=== PATIENT | male | born 1955 | race Caucasian/White ===

== ENCOUNTER 2018-01-19 16:53 | Inpatient (IN) | payer OTHER ==
[2018-01-19] MEDS: CEFEPIME 2GM/50 ML (PMX) 50 ML IVPB (17:44)
[2018-01-19 17:56] LABS: ABNORMAL IP MESSAGE 1; HEMATOCRIT 24.7 % (42.0-52.0); HEMOGLOBIN 7.8 g/dl (14.0-18.0); MEAN CORPUSCULAR HEMOGLOBIN 27.6 pg (29.0-33.0); MEAN CORPUSCULAR HGB CONC 31.6 g/dl (32.0-37.0); MEAN CORPUSCULAR VOLUME 87.3 fl (82.0-101.0); MEAN PLATELET VOLUME 10.3 fl (7.4-10.4); PLATELET COUNT 198 10^3/UL (140-415); POSITIVE DIFF @See below; RED BLOOD COUNT 2.83 10^6/ul (4.70-6.10); RED CELL DISTRIBUTION WIDTH 14.7 % (11.5-14.5)
[2018-01-19 17:56] LABS: WHITE BLOOD COUNT 14.8 10^3/ul (4.8-10.8)
[2018-01-19 18:13] LABS: ADD MAN DIFF? YES
[2018-01-19 18:13] LABS: LACTIC ACID 2.6 mmol/L (0.5-2.0)
[2018-01-19 18:15] LABS: INR 1.03; PROTIME 13.6 Sec (11.9-14.9); PT RATIO 1.1
[2018-01-19 18:16] LABS: PARTIAL THROMBOPLASTIN TIME 32.4 Sec (25.0-35.0)
[2018-01-19 18:17] LABS: ALANINE AMINOTRANSFERASE 12 IU/L (13-69); ALBUMIN 3.2 g/dl (3.3-4.9); ALKALINE PHOSPHATASE 100 IU/L (42-121); ANION GAP 15 (8-16); ASPARTATE AMINO TRANSFERASE 45 IU/L (15-46); BILIRUBIN,INDIRECT 0.2 mg/dl (0-1.1); BILIRUBIN,TOTAL 0.2 mg/dl (0.2-1.3); BLOOD UREA NITROGEN 58 mg/dl (7-20); CALCIUM 8.6 mg/dl (8.4-10.2); CARBON DIOXIDE 21 mmol/L (21-31); CHLORIDE 106 mmol/L (97-110); CREATININE 5.64 mg/dl (0.61-1.24); GLUCOSE 235 mg/dl (70-220); POTASSIUM 3.8 mmol/L (3.5-5.1); SODIUM 138 mmol/L (135-144); TOTAL PROTEIN 6.4 g/dl (6.1-8.1)
[2018-01-19] MEDS: ACETAMINOPHEN 325 MG TAB PO (18:23)
[2018-01-19 18:24] LABS: TROPONIN-I 0.019 ng/ml (0.000-0.120)
[2018-01-19] MEDS: SOD CHLORIDE 0.9% 1,000 ML IV ×2 (18:24)
[2018-01-19] MEDS: SOD CHLORIDE 0.9% 500 ML IV (18:25)
[2018-01-19 18:26] LABS: ADD UMIC YES; UR ASCORBIC ACID NEGATIVE (NEGATIVE); UR BACTERIA FEW /HPF (NONE SEEN); UR BILIRUBIN (Dip) NEGATIVE (NEGATIVE); UR BLOOD (Dip) 2+ mg/dL (NEGATIVE); UR BUDDING YEAST FEW /HPF (NONE SEEN); UR CLARITY SLIGHTLY CLOUDY (CLEAR); UR COLOR YELLOW (YELLOW); UR GLUCOSE (Dip) 2+ mg/dL (NEGATIVE); UR KETONES (Dip) NEGATIVE (NEGATIVE); UR LEUKOCYTE ESTERASE (Dip) 3+ Leu/ul (NEGATIVE); UR NITRITE (Dip) NEGATIVE (NEGATIVE); UR RBC 77 /HPF (0-5); UR SPECIFIC GRAVITY (Dip) 1.013 (1.003-1.030); UR TOTAL PROTEIN (Dip) 3+ mg/dl (NEGATIVE); UR UROBILINOGEN (Dip) NEGATIVE (NEGATIVE); UR WBC 83 /HPF (0-5)
[2018-01-19 18:42] LABS: ANISOCYTOSIS 2+ (0-0); BAND NEUTROPHILS #M 0.4 10^3/ul (0.0-0.6); BAND NEUTROPHILS % (M) 3 % (0-4); EOSINOPHILS % (M) 1 % (0-7); GIANT THROMBO% (M) 1 % (0-0); LYMPHOCYTES #M 0.8 10^3/ul (0.8-2.9); LYMPHOCYTES % (M) 6 % (15-51); MICROCYTOSIS 2+ (0-0); MONOCYTE #M 1.9 10^3/ul (0.3-0.9); MONOCYTES % (M) 13 % (0-11); PLATELET MORPHOLOGY COMMENT @See below; POIKILOCYTOSIS 1+ (0-0); REACTIVE LYMPHOCYTES #M 0.2 10^3/ul (0.0-0.0); REACTIVE LYMPHOCYTES% (M) 2 % (0-0); SEG NEUT #M 11.2 10^3/ul (1.6-7.5); SEGMENTED NEUTROPHILS (M) % 75 % (39-77)
[2018-01-19 20:17] LABS: LACTIC ACID 0.9 mmol/L (0.5-2.0)
[2018-01-19] MEDS ORDERED: DOCUSATE SODIUM 100 MG CAP PO (21:30)
[2018-01-19] MEDS ORDERED: BISACODYL (EC) 5 MG TAB PO (21:30)
[2018-01-19] MEDS ORDERED: morphine 2 MG INJ IV (21:30)
[2018-01-19] MEDS ORDERED: ACETAMINOPHEN 325 MG TAB PO (21:30)
[2018-01-19] MEDS ORDERED: NACL 0.9% 3 ML SYG IV (21:30)
[2018-01-19 22:50] LABS: LACTIC ACID 0.7 mmol/L (0.5-2.0)
[2018-01-19] MEDS: CLONIDINE 0.3 MG/24 HR PATCH TRANSDERM (23:28)
[2018-01-20] MEDS: FLUCONAZOLE 200 MG TAB PO (04:10)
[2018-01-20] MEDS: MEROPENEM 500MG/50 ML (PMX) 50 ML IVPB (04:21)
[2018-01-20 07:59] LABS: WHITE BLOOD COUNT 18.1 10^3/ul (4.8-10.8)
[2018-01-20 07:59] LABS: ABNORMAL IP MESSAGE 1; HEMATOCRIT 22.2 % (42.0-52.0); MEAN CORPUSCULAR HGB CONC 31.5 g/dl (32.0-37.0); MEAN CORPUSCULAR VOLUME 88.8 fl (82.0-101.0); MEAN PLATELET VOLUME 10.3 fl (7.4-10.4); PLATELET COUNT 192 10^3/UL (140-415); POSITIVE DIFF @See below; RED CELL DISTRIBUTION WIDTH 14.8 % (11.5-14.5)
[2018-01-20 08:01] LABS: ADD MAN DIFF? YES
[2018-01-20 08:10] LABS: HEMOGLOBIN A1C 6.9 % (0-5.9)
[2018-01-20 08:14] LABS: ALANINE AMINOTRANSFERASE 17 IU/L (13-69); ALBUMIN 2.6 g/dl (3.3-4.9); ALBUMIN/GLOBULIN RATIO 0.96; ALKALINE PHOSPHATASE 91 IU/L (42-121); ANION GAP 11 (8-16); ASPARTATE AMINO TRANSFERASE 19 IU/L (15-46); BILIRUBIN,INDIRECT 0.1 mg/dl (0-1.1); BILIRUBIN,TOTAL 0.1 mg/dl (0.2-1.3); BLOOD UREA NITROGEN 58 mg/dl (7-20); CALCIUM 8.2 mg/dl (8.4-10.2); CARBON DIOXIDE 22 mmol/L (21-31); CHLORIDE 112 mmol/L (97-110); CREATININE 5.29 mg/dl (0.61-1.24); GLUCOSE 114 mg/dl (70-220); POTASSIUM 3.7 mmol/L (3.5-5.1); SODIUM 141 mmol/L (135-144); TOTAL PROTEIN 5.3 g/dl (6.1-8.1)
[2018-01-20] MEDS: LEVOTHYROXINE 75 MCG TAB PO (08:35)
[2018-01-20] MEDS: LOSARTAN 25 MG TAB PO (08:35)
[2018-01-20] MEDS: FERROUS SULFATE (EC) 325 MG TAB PO ×2 (08:35→20:51)
[2018-01-20] MEDS: ASPIRIN (EC) 325 MG TAB PO (08:35)
[2018-01-20 08:50] LABS: IRON 21 ug/dl (35-150)
[2018-01-20 08:59] LABS: ANISOCYTOSIS 1+ (0-0); BAND NEUTROPHILS #M 2.8 10^3/ul (0.0-0.6); BAND NEUTROPHILS % (M) 16 % (0-4); EOSINOPHILS % (M) 1 % (0-7); LYMPHOCYTES #M 1.4 10^3/ul (0.8-2.9); LYMPHOCYTES % (M) 8 % (15-51); MICROCYTOSIS 1+ (0-0); MONOCYTE #M 1.6 10^3/ul (0.3-0.9); MONOCYTES % (M) 9 % (0-11); MYELOCYTES #M 0.1 10^3/ul (0.0-0.0); MYELOCYTES % (M) 1 % (0-0); PLATELET ESTIMATE NORMAL; POIKILOCYTOSIS 1+ (0-0); POLYCHROMASIA 1+ (0-0); REACTIVE LYMPHOCYTES #M 0.1 10^3/ul (0.0-0.0); REACTIVE LYMPHOCYTES% (M) 1 % (0-0); SEG NEUT #M 12.1 10^3/ul (1.6-7.5); SEGMENTED NEUTROPHILS (M) % 64 % (39-77); SMUDGE%M 6 % (0-0)
[2018-01-20 09:00] LABS: % IRON SATURATION 10 % SAT (22-52); TOTAL IRON BINDING CAPACITY 210 ug/dl (241-421)
[2018-01-20] MEDS ORDERED: morphine LIQ (10 MG/5 ML) CUP PO (15:00)
[2018-01-20] MEDS: EPOETIN 10000 UNITS/1 ML INJ (ESRD) SC (17:08)
[2018-01-20] MEDS: EZETIMIBE 10 MG TAB PO (20:51)
[2018-01-20] MEDS: ATORVASTATIN 40 MG TAB PO (20:51)
[2018-01-21] MEDS: MEROPENEM 500MG/50 ML (PMX) 50 ML IVPB ×2 (03:52→04:00)
[2018-01-21 06:06] LABS: ADD MAN DIFF? NO
[2018-01-21 06:11] LABS: WHITE BLOOD COUNT 17.9 10^3/ul (4.8-10.8)
[2018-01-21 06:11] LABS: ABNORMAL IP MESSAGE 1; BASOPHIL # 0.1 10^3/ul (0.0-0.1); BASOPHILS % 0.5 % (0.0-2.0); EOSINOPHILS # 0.6 10^3/ul (0.0-0.5); EOSINOPHILS % 3.6 % (0.0-7.0); HEMATOCRIT 25.7 % (42.0-52.0); HEMOGLOBIN 8.4 g/dl (14.0-18.0); LYMPHOCYTES % 11.4 % (15.0-51.0); MEAN CORPUSCULAR HEMOGLOBIN 28.8 pg (29.0-33.0); MEAN CORPUSCULAR HGB CONC 32.7 g/dl (32.0-37.0); MEAN PLATELET VOLUME 9.8 fl (7.4-10.4); MONOCYTE # 1.7 10^3/ul (0.3-0.9); MONOCYTES % 9.3 % (0.0-11.0); NEUTROPHIL # 12.9 10^3/ul (1.6-7.5); NEUTROPHILS % 71.9 % (39.0-77.0); PLATELET COUNT 211 10^3/UL (140-415); POSITIVE DIFF @See below; RED BLOOD COUNT 2.92 10^6/ul (4.70-6.10); RED CELL DISTRIBUTION WIDTH 14.5 % (11.5-14.5)
[2018-01-21] MEDS: LEVOTHYROXINE 75 MCG TAB PO (06:26)
[2018-01-21 06:27] LABS: ANION GAP 11 (8-16); BLOOD UREA NITROGEN 57 mg/dl (7-20); CALCIUM 8.4 mg/dl (8.4-10.2); CARBON DIOXIDE 22 mmol/L (21-31); CHLORIDE 111 mmol/L (97-110); GLUCOSE 176 mg/dl (70-220); MAGNESIUM 2.2 mg/dl (1.7-2.5); PHOSPHORUS 4.2 mg/dl (2.5-4.9); POTASSIUM 3.8 mmol/L (3.5-5.1); SODIUM 140 mmol/L (135-144)
[2018-01-21] MEDS: FERROUS SULFATE (EC) 325 MG TAB PO ×3 (08:41→20:24)
[2018-01-21] MEDS: ASPIRIN (EC) 325 MG TAB PO (08:41)
[2018-01-21] MEDS: LOSARTAN 50 MG TAB PO (08:42)
[2018-01-21 10:52] LABS: IMMEDIATE SPIN CROSSMATCH 1 1
[2018-01-21] MEDS ORDERED: VANCOMYCIN IV PER PHARMACY XX (14:30)
[2018-01-21] MEDS: VANCOMYCIN 1.75 GM in SOD CHLORIDE 0.9% 500 ML IVPB ×2 (16:37→18:44)
[2018-01-21] MEDS ORDERED: GLUCOSE GEL 15 GRAM TUBE PO ×2 (20:00)
[2018-01-21] MEDS ORDERED: GLUCOSE GEL 15 GRAM TUBE BUCCAL (20:00)
[2018-01-21] MEDS ORDERED: GLUCAGON 1 MG INJ IM (20:00)
[2018-01-21] MEDS ORDERED: DEXTROSE 50% 50 ML SYRINGE IV ×2 (20:00)
[2018-01-21] MEDS: ATORVASTATIN 40 MG TAB PO (20:24)
[2018-01-21] MEDS: EZETIMIBE 10 MG TAB PO (20:26)
[2018-01-21] MEDS: INSULIN ASPART [NOVOLOG] 3 ML PEN SC (20:51)
[2018-01-21] MEDS ORDERED: INSULIN ASPART [NOVOLOG] 3 ML PEN SC (21:00)
[2018-01-22] MEDS: ACCU-CHEK XX (01:52)
[2018-01-22] MEDS: LEVOTHYROXINE 75 MCG TAB PO (06:22)
[2018-01-22 06:42] LABS: ADD MAN DIFF? NO
[2018-01-22 06:54] LABS: ABNORMAL IP MESSAGE 1; BASOPHIL # 0.1 10^3/ul (0.0-0.1); BASOPHILS % 0.6 % (0.0-2.0); EOSINOPHILS # 0.7 10^3/ul (0.0-0.5); EOSINOPHILS % 4.3 % (0.0-7.0); HEMATOCRIT 26.1 % (42.0-52.0); HEMOGLOBIN 8.4 g/dl (14.0-18.0); LYMPHOCYTES # 2.3 10^3/ul (0.8-2.9); LYMPHOCYTES % 14.7 % (15.0-51.0); MEAN CORPUSCULAR HGB CONC 32.2 g/dl (32.0-37.0); MEAN PLATELET VOLUME 9.8 fl (7.4-10.4); MONOCYTE # 1.4 10^3/ul (0.3-0.9); MONOCYTES % 9.4 % (0.0-11.0); NEUTROPHIL # 9.7 10^3/ul (1.6-7.5); NEUTROPHILS % 63.3 % (39.0-77.0); PLATELET COUNT 241 10^3/UL (140-415); POSITIVE DIFF @See below; RED CELL DISTRIBUTION WIDTH 14.9 % (11.5-14.5)
[2018-01-22 06:54] LABS: WHITE BLOOD COUNT 15.3 10^3/ul (4.8-10.8)
[2018-01-22 07:13] LABS: ANION GAP 13 (8-16); BLOOD UREA NITROGEN 51 mg/dl (7-20); CALCIUM 8.5 mg/dl (8.4-10.2); CARBON DIOXIDE 22 mmol/L (21-31); CHLORIDE 112 mmol/L (97-110); CREATININE 5.14 mg/dl (0.61-1.24); GLUCOSE 179 mg/dl (70-220); MAGNESIUM 2.3 mg/dl (1.7-2.5); PHOSPHORUS 4.2 mg/dl (2.5-4.9); POTASSIUM 4.1 mmol/L (3.5-5.1); SODIUM 143 mmol/L (135-144)
[2018-01-22] MEDS: FERROUS SULFATE (EC) 325 MG TAB PO ×2 (08:43→14:16)
[2018-01-22] MEDS: ASPIRIN (EC) 325 MG TAB PO (08:43)
[2018-01-22] MEDS: LOSARTAN 50 MG TAB PO (08:44)
[2018-01-22] MEDS: INSULIN ASPART [NOVOLOG] 3 ML PEN SC ×2 (08:55→12:52)
== END 2018-01-22 14:30 | disposition home or self-care (01) | DRG 698 ==
LOC: E/R 16:53 → TEL 19:50
PROVIDERS: Pediatrics
DX: T83.518A Infection and inflammatory reaction due to other urinary catheter, initial encounter (principal); A41.9 Sepsis, unspecified organism; N39.0 Urinary tract infection, site not specified; I50.22 Chronic systolic (congestive) heart failure; I13.2 Hypertensive heart and chronic kidney disease with heart failure and with stage 5 chronic kidney disease, or end stage renal disease; N18.5 Chronic kidney disease, stage 5; E11.22 Type 2 diabetes mellitus with diabetic chronic kidney disease; I48.0 Paroxysmal atrial fibrillation; E03.9 Hypothyroidism, unspecified; I25.10 Atherosclerotic heart disease of native coronary artery without angina pectoris; Y84.6 Urinary catheterization as the cause of abnormal reaction of the patient, or of later complication, without mention of misadventure at the time of the procedure; Y92.019 Unspecified place in single-family (private) house as the place of occurrence of the external cause; Z79.01 Long term (current) use of anticoagulants; Z79.82 Long term (current) use of aspirin; Z79.84 Long term (current) use of oral hypoglycemic drugs; Z87.891 Personal history of nicotine dependence; Z95.5 Presence of coronary angioplasty implant and graft; Z79.4 Long term (current) use of insulin
CPT/HCPCS: 36415; 36430; 71045; 76775; 80048; 80053; 81001; 82728; 82962; 83036; 83540; 83605; 83735; 84100; 84484; 85025; 85610; 85730; 86850; 86900; 86901; 86920; 87040; 87086; 93005; 96361; 96365; 99291-25

== ENCOUNTER 2018-02-04 02:14 | Inpatient (IN) | payer OTHER ==
[2018-02-04] MEDS ORDERED: NITROGLYCERIN (SL) 0.4 MG TAB (02:27)
[2018-02-04] MEDS: NITROGLYCERIN 50 MG/D5W (PMX) 250 ML IV (02:37)
[2018-02-04] MEDS: LORAZEPAM 2 MG INJ IV (02:37)
[2018-02-04] MEDS: ASPIRIN 325 MG TAB PO (02:38)
[2018-02-04] MEDS: NITROGLYCERIN (SL) 0.4 MG TAB SL (02:38)
[2018-02-04] MEDS: ONDANSETRON 4 MG INJ IV (02:38)
[2018-02-04] MEDS: FUROSEMIDE 40 MG INJ IV ×2 (02:38→03:54)
[2018-02-04 02:53] LABS: ADD MAN DIFF? NO
[2018-02-04 02:54] LABS: BASOPHIL # 0.2 10^3/ul (0.0-0.1); BASOPHILS % 1.1 % (0.0-2.0); EOSINOPHILS # 0.5 10^3/ul (0.0-0.5); EOSINOPHILS % 3.4 % (0.0-7.0); HEMATOCRIT 33.4 % (42.0-52.0); HEMOGLOBIN 10.4 g/dl (14.0-18.0); LYMPHOCYTES # 3.2 10^3/ul (0.8-2.9); LYMPHOCYTES % 23.1 % (15.0-51.0); MEAN CORPUSCULAR HEMOGLOBIN 28.2 pg (29.0-33.0); MEAN CORPUSCULAR HGB CONC 31.1 g/dl (32.0-37.0); MEAN CORPUSCULAR VOLUME 90.5 fl (82.0-101.0); MEAN PLATELET VOLUME 10.4 fl (7.4-10.4); MONOCYTE # 0.8 10^3/ul (0.3-0.9); MONOCYTES % 5.7 % (0.0-11.0); NEUTROPHIL # 9.3 10^3/ul (1.6-7.5); NEUTROPHILS % 66.3 % (39.0-77.0); PLATELET COUNT 307 10^3/UL (140-415); RED BLOOD COUNT 3.69 10^6/ul (4.70-6.10); RED CELL DISTRIBUTION WIDTH 15.7 % (11.5-14.5)
[2018-02-04] MEDS: METOLAZONE 5 MG TAB PO (03:18)
[2018-02-04 03:27] LABS: ANION GAP 21 (8-16); BLOOD UREA NITROGEN 63 mg/dl (7-20); CALCIUM 9.8 mg/dl (8.4-10.2); CARBON DIOXIDE 23 mmol/L (21-31); CHLORIDE 107 mmol/L (97-110); CREATINE KINASE 37 IU/L (23-200); CREATININE 5.15 mg/dl (0.61-1.24); GLUCOSE 224 mg/dl (70-220); POTASSIUM 4.6 mmol/L (3.5-5.1); SODIUM 146 mmol/L (135-144)
[2018-02-04 03:39] LABS: CK INDEX 3.2; TROPONIN-I 0.019 ng/ml (0.000-0.120)
[2018-02-04 03:47] LABS: CK-MB 1.19 ng/ml (0.0-2.4)
[2018-02-04 03:52] LABS: B-TYPE NATRIURETIC PEPTIDE 37600 PG/ML (0-125)
[2018-02-04 04:56] LABS: AADO2 Arterial 198.7 mmHg (7.0-24.0); Allen Test ACCEPTAB; Arterial Base Excess -3.9 mmol/L (-3.0-3); Arterial Blood Gas Oxygen Sat 98.2 mmHG (95.0-98.0); Arterial COHb 0.1 % (0.0-3.0); Arterial Fraction of Oxyhgb 97.9 % (93.0-99.0); Arterial HCO3 20.2 mmol/L (22.0-26.0); Arterial MetHb 0.2 % (0.0-1.5); Arterial Total Hemglobin 9.1 g/dl (12.0-18.0); Arterial pCO2 32.7 mmhg (35-45); Blood Gas IEPAP 15/5; MODE MASK - BIPAP; Site Right Radial
[2018-02-04] MEDS ORDERED: ONDANSETRON 4 MG INJ IV (05:00)
[2018-02-04] MEDS ORDERED: ACETAMINOPHEN 325 MG TAB PO (05:00)
[2018-02-04] MEDS ORDERED: ALBUTEROL/IPRATROPIUM (NEB) 3 ML AMP NEB (05:00)
[2018-02-04] MEDS: PANTOPRAZOLE (EC) 40 MG TAB PO (06:27)
[2018-02-04] MEDS: LEVOTHYROXINE 75 MCG TAB PO (06:27)
[2018-02-04] MEDS: LOSARTAN 25 MG TAB PO ×2 (06:28→10:06)
[2018-02-04] MEDS ORDERED: CLONIDINE 0.3 MG/24 HR PATCH TRANSDERM (07:00)
[2018-02-04 08:05] LABS: HEMOGLOBIN A1C 6.8 % (0-5.9)
[2018-02-04 09:59] LABS: CREATINE KINASE 24 IU/L (23-200)
[2018-02-04] MEDS: BUMETANIDE 6 MG in DEXTROSE 5% 36 ML IV ×2 (10:06→15:01)
[2018-02-04] MEDS: ASPIRIN (EC) 325 MG TAB PO (10:06)
[2018-02-04 10:07] LABS: CK INDEX 2.5; TROPONIN-I 0.027 ng/ml (0.000-0.120)
[2018-02-04] MEDS: ENOXAPARIN 40 MG/0.4 ML SYG SC (10:07)
[2018-02-04 10:09] LABS: CK-MB 0.59 ng/ml (0.0-2.4)
[2018-02-04] MEDS ORDERED: GLUCOSE GEL 15 GRAM TUBE PO ×2 (10:30)
[2018-02-04] MEDS ORDERED: GLUCOSE GEL 15 GRAM TUBE BUCCAL (10:30)
[2018-02-04] MEDS ORDERED: DEXTROSE 50% 50 ML SYRINGE IV ×2 (10:30)
[2018-02-04] MEDS ORDERED: GLUCAGON 1 MG INJ IM (10:30)
[2018-02-04] MEDS: INSULIN ASPART [NOVOLOG] 3 ML PEN SC ×3 (13:29→20:57)
[2018-02-04 14:45] LABS: HEPATITIS B SURFACE ANTIGEN NEGATIVE (NEGATIVE)
[2018-02-04] MEDS: ATORVASTATIN 40 MG TAB PO (20:47)
[2018-02-04] MEDS: EZETIMIBE 10 MG TAB PO (20:48)
[2018-02-04] MEDS: HEPARIN 5,000 UNIT/0.5 ML VIAL SC (20:50)
[2018-02-05] MEDS: ACCU-CHEK XX (02:30)
[2018-02-05 04:56] LABS: ADD MAN DIFF? NO
[2018-02-05 05:03] LABS: BASOPHIL # 0.1 10^3/ul (0.0-0.1); BASOPHILS % 0.9 % (0.0-2.0); EOSINOPHILS # 0.2 10^3/ul (0.0-0.5); EOSINOPHILS % 3.3 % (0.0-7.0); HEMATOCRIT 23.5 % (42.0-52.0); HEMOGLOBIN 7.5 g/dl (14.0-18.0); LYMPHOCYTES # 1.8 10^3/ul (0.8-2.9); LYMPHOCYTES % 28.3 % (15.0-51.0); MEAN CORPUSCULAR HEMOGLOBIN 28.2 pg (29.0-33.0); MEAN CORPUSCULAR HGB CONC 31.9 g/dl (32.0-37.0); MEAN CORPUSCULAR VOLUME 88.3 fl (82.0-101.0); MEAN PLATELET VOLUME 10.2 fl (7.4-10.4); MONOCYTE # 0.8 10^3/ul (0.3-0.9); MONOCYTES % 12.2 % (0.0-11.0); NEUTROPHIL # 3.5 10^3/ul (1.6-7.5); PLATELET COUNT 174 10^3/UL (140-415); RED BLOOD COUNT 2.66 10^6/ul (4.70-6.10); RED CELL DISTRIBUTION WIDTH 15.4 % (11.5-14.5)
[2018-02-05 05:03] LABS: WHITE BLOOD COUNT 6.4 10^3/ul (4.8-10.8)
[2018-02-05 05:14] LABS: ANION GAP 14 (8-16); BLOOD UREA NITROGEN 46 mg/dl (7-20); CARBON DIOXIDE 26 mmol/L (21-31); CHLORIDE 107 mmol/L (97-110); CREATININE 4.13 mg/dl (0.61-1.24); GLUCOSE 130 mg/dl (70-220); POTASSIUM 3.7 mmol/L (3.5-5.1); SODIUM 143 mmol/L (135-144)
[2018-02-05 05:15] LABS: CALCIUM 8.7 mg/dl (8.4-10.2); MAGNESIUM 2.1 mg/dl (1.7-2.5)
[2018-02-05] MEDS: LEVOTHYROXINE 75 MCG TAB PO (06:10)
[2018-02-05] MEDS: PANTOPRAZOLE (EC) 40 MG TAB PO (06:10)
[2018-02-05] MEDS: INSULIN ASPART [NOVOLOG] 3 ML PEN SC ×4 (07:35→20:41)
[2018-02-05 07:57] LABS: IRON 26 ug/dl (35-150)
[2018-02-05 08:07] LABS: % IRON SATURATION 11 % SAT (22-52); TOTAL IRON BINDING CAPACITY 241 ug/dl (241-421)
[2018-02-05] MEDS: ASPIRIN (EC) 325 MG TAB PO (09:23)
[2018-02-05] MEDS: LOSARTAN 25 MG TAB PO (09:23)
[2018-02-05] MEDS: HEPARIN 5,000 UNIT/0.5 ML VIAL SC ×2 (09:31→20:42)
[2018-02-05] MEDS: FUROSEMIDE 40 MG TAB PO ×2 (10:59→17:37)
[2018-02-05] MEDS: HEPARIN 1000 UNITS/ML 10 ML INJ CATHETER (13:01)
[2018-02-05] MEDS: EZETIMIBE 10 MG TAB PO (20:39)
[2018-02-05] MEDS: ATORVASTATIN 40 MG TAB PO (20:39)
[2018-02-05] MEDS: FERROUS SULFATE (EC) 325 MG TAB PO (20:40)
[2018-02-05] MEDS ORDERED: NON-FORMULARY/PATIENT OWN MED (Carvedilol* 25 MG) PO (21:00)
[2018-02-06] MEDS: ACCU-CHEK XX (02:00)
[2018-02-06] MEDS: FUROSEMIDE 40 MG TAB PO ×2 (06:10→17:35)
[2018-02-06 06:12] LABS: ADD MAN DIFF? NO; HAAIG REFLEX REFLEX FILED
[2018-02-06 06:18] LABS: BASOPHIL # 0.1 10^3/ul (0.0-0.1); BASOPHILS % 0.9 % (0.0-2.0); EOSINOPHILS # 0.3 10^3/ul (0.0-0.5); EOSINOPHILS % 3.9 % (0.0-7.0); HEMATOCRIT 28.2 % (42.0-52.0); HEMOGLOBIN 8.9 g/dl (14.0-18.0); LYMPHOCYTES # 2.2 10^3/ul (0.8-2.9); LYMPHOCYTES % 29.5 % (15.0-51.0); MEAN CORPUSCULAR HGB CONC 31.6 g/dl (32.0-37.0); MEAN CORPUSCULAR VOLUME 88.7 fl (82.0-101.0); MEAN PLATELET VOLUME 10.3 fl (7.4-10.4); MONOCYTE # 0.9 10^3/ul (0.3-0.9); MONOCYTES % 12.3 % (0.0-11.0); NEUTROPHIL # 3.9 10^3/ul (1.6-7.5); NEUTROPHILS % 53.1 % (39.0-77.0); PLATELET COUNT 194 10^3/UL (140-415); RED BLOOD COUNT 3.18 10^6/ul (4.70-6.10); RED CELL DISTRIBUTION WIDTH 14.9 % (11.5-14.5)
[2018-02-06 06:18] LABS: WHITE BLOOD COUNT 7.4 10^3/ul (4.8-10.8)
[2018-02-06 07:27] LABS: ANION GAP 15 (8-16); BLOOD UREA NITROGEN 46 mg/dl (7-20); CARBON DIOXIDE 26 mmol/L (21-31); CHLORIDE 104 mmol/L (97-110); CREATININE 4.24 mg/dl (0.61-1.24); GLUCOSE 155 mg/dl (70-220); MAGNESIUM 2.1 mg/dl (1.7-2.5); PHOSPHORUS 5.3 mg/dl (2.5-4.9); POTASSIUM 3.4 mmol/L (3.5-5.1); SODIUM 142 mmol/L (135-144)
[2018-02-06 07:38] LABS: HEPATITIS B SURFACE ANTIGEN NEGATIVE (NEGATIVE)
[2018-02-06 07:56] LABS: HEPATITIS C VIRAL ANTIBODY NEGATIVE (NEGATIVE)
[2018-02-06] MEDS: ALLOPURINOL 100 MG TAB PO (08:22)
[2018-02-06] MEDS: FERROUS SULFATE (EC) 325 MG TAB PO ×2 (08:22→21:14)
[2018-02-06] MEDS: TAMSULOSIN (SR) 0.4 MG CAP PO (08:22)
[2018-02-06] MEDS: POTASSIUM CHLORIDE (SR) 20 MEQ TAB PO (08:23)
[2018-02-06] MEDS: LOSARTAN 25 MG TAB PO (08:24)
[2018-02-06] MEDS: ASPIRIN (EC) 325 MG TAB PO (08:24)
[2018-02-06] MEDS: INSULIN ASPART [NOVOLOG] 3 ML PEN SC ×4 (08:26→21:17)
[2018-02-06] MEDS: HEPARIN 5,000 UNIT/0.5 ML VIAL SC ×2 (08:26→21:31)
[2018-02-06] MEDS: LEVOTHYROXINE 75 MCG TAB PO (08:27)
[2018-02-06] MEDS ORDERED: AMIODARONE 200 MG TAB PO (09:00)
[2018-02-06] MEDS ORDERED: EZETIMIBE 10 MG PO (09:00)
[2018-02-06 12:57] LABS: HEPATITIS B CORE ANTIBODY NEGATIVE (NEGATIVE)
[2018-02-06] MEDS: ATORVASTATIN 40 MG TAB PO (21:14)
[2018-02-06] MEDS: EZETIMIBE 10 MG TAB PO (21:14)
[2018-02-07] MEDS: ACCU-CHEK XX (01:59)
[2018-02-07] MEDS: LEVOTHYROXINE 75 MCG TAB PO (06:15)
[2018-02-07] MEDS: FUROSEMIDE 40 MG TAB PO (06:16)
[2018-02-07 06:20] LABS: ADD MAN DIFF? NO
[2018-02-07 06:34] LABS: BASOPHIL # 0.1 10^3/ul (0.0-0.1); EOSINOPHILS # 0.3 10^3/ul (0.0-0.5); HEMATOCRIT 27.9 % (42.0-52.0); LYMPHOCYTES # 2.5 10^3/ul (0.8-2.9); MEAN CORPUSCULAR HGB CONC 32.3 g/dl (32.0-37.0); MEAN CORPUSCULAR VOLUME 86.9 fl (82.0-101.0); MEAN PLATELET VOLUME 10.3 fl (7.4-10.4); MONOCYTE # 0.9 10^3/ul (0.3-0.9); MONOCYTES % 11.7 % (0.0-11.0); NEUTROPHIL # 3.5 10^3/ul (1.6-7.5); PLATELET COUNT 218 10^3/UL (140-415); RED BLOOD COUNT 3.21 10^6/ul (4.70-6.10); RED CELL DISTRIBUTION WIDTH 15.2 % (11.5-14.5)
[2018-02-07 06:34] LABS: WHITE BLOOD COUNT 7.3 10^3/ul (4.8-10.8)
[2018-02-07 07:00] LABS: ANION GAP 19 (8-16); BLOOD UREA NITROGEN 56 mg/dl (7-20); CALCIUM 9.2 mg/dl (8.4-10.2); CARBON DIOXIDE 29 mmol/L (21-31); CHLORIDE 99 mmol/L (97-110); CREATININE 5.15 mg/dl (0.61-1.24); GLUCOSE 149 mg/dl (70-220); MAGNESIUM 2.2 mg/dl (1.7-2.5); PHOSPHORUS 5.8 mg/dl (2.5-4.9); POTASSIUM 3.7 mmol/L (3.5-5.1); SODIUM 143 mmol/L (135-144)
[2018-02-07] MEDS: FERROUS SULFATE (EC) 325 MG TAB PO (08:08)
[2018-02-07] MEDS: LOSARTAN 25 MG TAB PO (08:08)
[2018-02-07] MEDS: ATORVASTATIN 80 MG TAB PO (08:08)
[2018-02-07] MEDS: ASPIRIN (EC) 325 MG TAB PO (08:08)
[2018-02-07] MEDS: TAMSULOSIN (SR) 0.4 MG CAP PO (08:09)
[2018-02-07] MEDS: ALLOPURINOL 100 MG TAB PO (08:09)
[2018-02-07] MEDS: INSULIN ASPART [NOVOLOG] 3 ML PEN SC ×2 (08:11→12:45)
[2018-02-07] MEDS: HEPARIN 5,000 UNIT/0.5 ML VIAL SC (08:12)
[2018-02-10] MEDS ORDERED: CLONIDINE 0.3 MG/24 HR PATCH TRANSDERM (07:00)
== END 2018-02-07 16:55 | disposition left against medical advice (07) | DRG 291 ==
LOC: MS2 02-05 15:45 → E/R 02:14 → ICU 02:52
PROC: 5A1D70Z Performance of Urinary Filtration, Intermittent, Less than 6 Hours Per Day (ICD-10-PCS; 2018-02-04)
PROC: 5A1D70Z Performance of Urinary Filtration, Intermittent, Less than 6 Hours Per Day (ICD-10-PCS; principal; 2018-02-05)
DX: I50.23 Acute on chronic systolic (congestive) heart failure (principal); J96.01 Acute respiratory failure with hypoxia; N18.5 Chronic kidney disease, stage 5; E87.0 Hyperosmolality and hypernatremia; I13.2 Hypertensive heart and chronic kidney disease with heart failure and with stage 5 chronic kidney disease, or end stage renal disease; E11.22 Type 2 diabetes mellitus with diabetic chronic kidney disease; I16.0 Hypertensive urgency; I48.0 Paroxysmal atrial fibrillation; I11.0 Hypertensive heart disease with heart failure; I25.10 Atherosclerotic heart disease of native coronary artery without angina pectoris; E78.5 Hyperlipidemia, unspecified; Z79.4 Long term (current) use of insulin; Z99.2 Dependence on renal dialysis; Z87.891 Personal history of nicotine dependence
CPT/HCPCS: 36415; 36600; 71045; 80048; 82550; 82553; 82728; 82803; 82962; 83036; 83540; 83735; 83880; 84100; 84484; 85025; 86704; 86709; 86803; 87081; 87340; 90935; 93005; 94660; 96374; 96375; 96376; 99291-25

== ENCOUNTER 2018-04-04 01:26 | Inpatient (IN) | payer OTHER ==
[2018-04-04 01:38] LABS: ADD MAN DIFF? NO
[2018-04-04 01:40] LABS: BASOPHIL # 0.1 10^3/ul (0.0-0.1); BASOPHILS % 0.5 % (0.0-2.0); EOSINOPHILS # 0.4 10^3/ul (0.0-0.5); EOSINOPHILS % 2.9 % (0.0-7.0); HEMATOCRIT 31.1 % (42.0-52.0); HEMOGLOBIN 10.2 g/dl (14.0-18.0); LYMPHOCYTES # 3.3 10^3/ul (0.8-2.9); LYMPHOCYTES % 21.7 % (15.0-51.0); MEAN CORPUSCULAR HEMOGLOBIN 28.7 pg (29.0-33.0); MEAN CORPUSCULAR HGB CONC 32.8 g/dl (32.0-37.0); MEAN CORPUSCULAR VOLUME 87.6 fl (82.0-101.0); MEAN PLATELET VOLUME 9.6 fl (7.4-10.4); MONOCYTE # 1.3 10^3/ul (0.3-0.9); MONOCYTES % 8.7 % (0.0-11.0); NEUTROPHIL # 9.9 10^3/ul (1.6-7.5); NEUTROPHILS % 65.7 % (39.0-77.0); PLATELET COUNT 224 10^3/UL (140-415); RED BLOOD COUNT 3.55 10^6/ul (4.70-6.10); RED CELL DISTRIBUTION WIDTH 16.6 % (11.5-14.5)
[2018-04-04 01:59] LABS: ALANINE AMINOTRANSFERASE 16 IU/L (13-69); ALBUMIN/GLOBULIN RATIO 1.08; ALKALINE PHOSPHATASE 77 IU/L (42-121); ANION GAP 19 (8-16); ASPARTATE AMINO TRANSFERASE 14 IU/L (15-46); BILIRUBIN,INDIRECT 0.1 mg/dl (0-1.1); BILIRUBIN,TOTAL 0.1 mg/dl (0.2-1.3); BLOOD UREA NITROGEN 55 mg/dl (7-20); CALCIUM 9.6 mg/dl (8.4-10.2); CARBON DIOXIDE 19 mmol/L (21-31); CHLORIDE 106 mmol/L (97-110); CREATININE 4.73 mg/dl (0.61-1.24); GLUCOSE 207 mg/dl (70-220); POTASSIUM 3.6 mmol/L (3.5-5.1); SODIUM 140 mmol/L (135-144); TOTAL PROTEIN 7.7 g/dl (6.1-8.1)
[2018-04-04 02:12] LABS: TROPONIN-I 0.031 ng/ml (0.000-0.120)
[2018-04-04 02:25] LABS: B-TYPE NATRIURETIC PEPTIDE 47400 PG/ML (0-125)
[2018-04-04] MEDS: hydrALAzine 20 MG INJ IV (04:27)
[2018-04-04] MEDS ORDERED: ACETAMINOPHEN 325 MG TAB PO (06:00)
[2018-04-04] MEDS ORDERED: DOCUSATE SODIUM 100 MG CAP PO (06:00)
[2018-04-04] MEDS ORDERED: CLONIDINE TRANSDERM (06:00)
[2018-04-04] MEDS ORDERED: NACL 0.9% 3 ML SYG IV (06:00)
[2018-04-04] MEDS ORDERED: ONDANSETRON 4 MG INJ IV (06:00)
[2018-04-04] MEDS ORDERED: hydrALAzine 20 MG INJ IV (06:00)
[2018-04-04] MEDS ORDERED: DEXTROSE 50% 50 ML SYRINGE IV ×2 (08:00)
[2018-04-04] MEDS ORDERED: GLUCAGON 1 MG INJ IM (08:00)
[2018-04-04] MEDS: LEVOTHYROXINE 75 MCG TAB PO (08:00)
[2018-04-04] MEDS ORDERED: GLUCOSE GEL 15 GRAM TUBE BUCCAL (08:00)
[2018-04-04] MEDS ORDERED: GLUCOSE GEL 15 GRAM TUBE PO ×2 (08:00)
[2018-04-04] MEDS: ASPIRIN (EC) 325 MG TAB PO (08:48)
[2018-04-04] MEDS: ALLOPURINOL 100 MG TAB PO (08:48)
[2018-04-04] MEDS: FERROUS SULFATE (EC) 325 MG TAB PO ×2 (08:48→20:59)
[2018-04-04] MEDS: HYDROCHLOROTHIAZIDE 25 MG TAB PO (08:49)
[2018-04-04] MEDS: AMIODARONE 200 MG TAB PO (08:50)
[2018-04-04] MEDS: FUROSEMIDE 40 MG INJ IV (08:51)
[2018-04-04] MEDS: ATORVASTATIN 80 MG TAB PO (08:51)
[2018-04-04] MEDS: LOSARTAN 25 MG TAB PO (08:52)
[2018-04-04] MEDS: EZETIMIBE 10 MG TAB PO (09:00)
[2018-04-04] MEDS ORDERED: FUROSEMIDE 40 MG TAB PO (09:00)
[2018-04-04] MEDS: HEPARIN 5,000 UNIT/0.5 ML VIAL SC ×3 (09:03→22:42)
[2018-04-04 09:34] LABS: CREATINE KINASE 36 IU/L (23-200)
[2018-04-04 09:43] LABS: CK INDEX 3.5; CK-MB 1.26 ng/ml (0.0-2.4); TROPONIN-I 0.049 ng/ml (0.000-0.120)
[2018-04-04] MEDS: CLONIDINE 0.3 MG/24 HR PATCH TRANSDERM (11:06)
[2018-04-04 14:58] LABS: CREATINE KINASE 34 IU/L (23-200)
[2018-04-04 15:11] LABS: CK INDEX 3.9; CK-MB 1.34 ng/ml (0.0-2.4)
[2018-04-04] MEDS: TAMSULOSIN (SR) 0.4 MG CAP PO (20:59)
[2018-04-04] MEDS: INSULIN ASPART [NOVOLOG] 3 ML PEN SC (21:09)
[2018-04-04] MEDS: INSULIN GLARGINE [LANTus] (100 UNITS/ML) SYG SC (21:09)
[2018-04-05] MEDS: ACCU-CHEK XX (02:00)
[2018-04-05 06:15] LABS: ADD MAN DIFF? NO
[2018-04-05] MEDS: LEVOTHYROXINE 75 MCG TAB PO (06:24)
[2018-04-05 06:25] LABS: WHITE BLOOD COUNT 8.2 10^3/ul (4.8-10.8)
[2018-04-05 06:25] LABS: BASOPHIL # 0.1 10^3/ul (0.0-0.1); BASOPHILS % 0.9 % (0.0-2.0); EOSINOPHILS # 0.3 10^3/ul (0.0-0.5); EOSINOPHILS % 3.9 % (0.0-7.0); HEMATOCRIT 27.6 % (42.0-52.0); HEMOGLOBIN 8.6 g/dl (14.0-18.0); LYMPHOCYTES # 2.4 10^3/ul (0.8-2.9); MEAN CORPUSCULAR HEMOGLOBIN 27.7 pg (29.0-33.0); MEAN CORPUSCULAR HGB CONC 31.2 g/dl (32.0-37.0); MEAN PLATELET VOLUME 10.4 fl (7.4-10.4); MONOCYTE # 0.8 10^3/ul (0.3-0.9); MONOCYTES % 9.4 % (0.0-11.0); NEUTROPHIL # 4.6 10^3/ul (1.6-7.5); NEUTROPHILS % 56.1 % (39.0-77.0); PLATELET COUNT 173 10^3/UL (140-415)
[2018-04-05] MEDS: HEPARIN 5,000 UNIT/0.5 ML VIAL SC ×3 (06:36→21:18)
[2018-04-05 06:58] LABS: ANION GAP 14 (8-16); BLOOD UREA NITROGEN 60 mg/dl (7-20); CARBON DIOXIDE 23 mmol/L (21-31); CHLORIDE 109 mmol/L (97-110); GLUCOSE 131 mg/dl (70-220); POTASSIUM 3.3 mmol/L (3.5-5.1); SODIUM 143 mmol/L (135-144)
[2018-04-05 07:05] LABS: MAGNESIUM 2.3 mg/dl (1.7-2.5)
[2018-04-05 07:05] LABS: PHOSPHORUS 5.2 mg/dl (2.5-4.9)
[2018-04-05] MEDS: INSULIN ASPART [NOVOLOG] 3 ML PEN SC ×4 (07:40→21:00)
[2018-04-05 07:51] LABS: HEMOGLOBIN A1C 6.7 % (0-5.9)
[2018-04-05] MEDS: ALLOPURINOL 100 MG TAB PO (08:48)
[2018-04-05] MEDS: EZETIMIBE 10 MG TAB PO (08:48)
[2018-04-05] MEDS: ASPIRIN (EC) 325 MG TAB PO (08:49)
[2018-04-05] MEDS: AMIODARONE 200 MG TAB PO (08:49)
[2018-04-05] MEDS: FERROUS SULFATE (EC) 325 MG TAB PO ×2 (08:49→21:11)
[2018-04-05] MEDS: ATORVASTATIN 80 MG TAB PO (08:49)
[2018-04-05] MEDS: FUROSEMIDE 40 MG TAB PO (08:49)
[2018-04-05] MEDS: HYDROCHLOROTHIAZIDE 25 MG TAB PO (08:50)
[2018-04-05] MEDS: LOSARTAN 25 MG TAB PO (08:50)
[2018-04-05] MEDS: POTASSIUM CHLORIDE (SR) 20 MEQ TAB PO (11:28)
[2018-04-05 11:53] LABS: HEPATITIS B SURFACE ANTIGEN NEGATIVE (NEGATIVE)
[2018-04-05 12:10] LABS: HEPATITIS B SURFACE ANTIBODY POSITIVE (NEGATIVE)
[2018-04-05] MEDS: ALTEPLASE (CATHFLO) 2 MG INJ CATHETER (15:17)
[2018-04-05] MEDS: EPOETIN 10000 UNITS/1 ML INJ (ESRD) SC (17:06)
[2018-04-05] MEDS: TAMSULOSIN (SR) 0.4 MG CAP PO (21:11)
[2018-04-05] MEDS: INSULIN GLARGINE [LANTus] (100 UNITS/ML) SYG SC (21:17)
[2018-04-05] MEDS: HEPARIN 1000 UNITS/ML 10 ML INJ CATHETER (22:43)
== END 2018-04-05 23:00 | disposition home or self-care (01) | DRG 291 ==
LOC: E/R 01:26 → TEL 05:40
PROC: 3E0F7GC Introduction of Other Therapeutic Substance into Respiratory Tract, Via Natural or Artificial Opening (ICD-10-PCS; 2018-04-04)
PROC: 5A1D70Z Performance of Urinary Filtration, Intermittent, Less than 6 Hours Per Day (ICD-10-PCS; principal; 2018-04-05)
DX: I13.2 Hypertensive heart and chronic kidney disease with heart failure and with stage 5 chronic kidney disease, or end stage renal disease (principal); I50.33 Acute on chronic diastolic (congestive) heart failure; N18.6 End stage renal disease; E11.22 Type 2 diabetes mellitus with diabetic chronic kidney disease; Z99.2 Dependence on renal dialysis; I11.0 Hypertensive heart disease with heart failure; I25.10 Atherosclerotic heart disease of native coronary artery without angina pectoris; Z95.1 Presence of aortocoronary bypass graft; I48.91 Unspecified atrial fibrillation; E03.9 Hypothyroidism, unspecified; Z85.51 Personal history of malignant neoplasm of bladder; Z86.73 Personal history of transient ischemic attack (TIA), and cerebral infarction without residual deficits; Z95.0 Presence of cardiac pacemaker; R06.03 Acute respiratory distress; I49.5 Sick sinus syndrome; Z79.82 Long term (current) use of aspirin; Z79.4 Long term (current) use of insulin
CPT/HCPCS: 36415; 71045; 80048; 80053; 82550; 82553; 82962; 83036; 83735; 83880; 84100; 84484; 85025; 86706; 87081; 87340; 90935; 93005; 96374; 99285-25